=== PATIENT | female | born 1985 | race American Indian/Alaskan Native ===

== ENCOUNTER 2019-09-19 01:40 | Emergency (ER) | payer SELFPAY ==
[2019-09-19] MEDS ORDERED: ASPIRIN 325 MG TAB PO ONE (01:58)
[2019-09-19] MEDS ORDERED: IBUPROFEN 800 MG TAB PO ONE (02:10)
--- NOTE | 2019-09-19 02:15 | Emergency Department Report ---
ED Chest Pain HPI - General Chief Complaint: Chest Pain Stated Complaint: CHEST PAIN SOB Time Seen by Provider: 09/19/19 02:09 Source: patient Mode of arrival: Ambulatory Limitations: No Limitations - History of Present Illness Initial Comments: Ms. Bacon is a 34 yo female with hx of anixet and heart murmur who presents with chest pain for one year but worse for the past week. She is worried about heart attack or breast cancer. Chest pain in left chest worse when she is stressed out. She is worried about her relationship with her live in significant other. She is worried about her child at school. Denies SI or HI. Pain normally in left chest now radiated to mid chest with pressure sensation. [place] hot and flushed. Pain occurred at rest. No association with exertion. +shortness of breath. NO family hx of heart disease or breast cancer. She has had breast tendernes for several days. She has performed self breast exam. She nor her partner has detected at lump. MD Complaint: chest pain -: Gradual, week(s) (Several weeks), year(s) (1) Onset: during rest Pain Location: substernal, left chest Severity: mild Quality: tightness, sharp Consistency: intermittent Worsens With: palpation, movement re: dyspnea - Related Data Allergies Allergy/AdvReac Type Severity Reaction Status Date / Time No Known Allergies Allergy Verified 09/19/19 01:58 Heart Score - HEART Score History: Slightly suspicious EKG: Normal Age: < 45 Risk factors: No known risk factors Troponin: < normal limit HEART Score: 0 ED Review of Systems ROS: Stated complaint: CHEST PAIN SOB Other details as noted in HPI Comment: All other systems reviewed and negative Constitutional: denies: fever, malaise Respiratory: shortness of breath. denies: cough Cardiovascular: chest pain, palpitations Psychiatric: anxiety ED Past Medical Hx - Past Medical History Previous Medical History?: Yes Additional medical history: mumur - Surgical History Past Surgical History?: Yes Additional Surgical History: brochal cleft cyst - Family History Family history: hypertension - Social History Smoking Status: Never Smoker Substance Use Type: Alcohol ED Physical Exam - General Limitations: No Limitations General appearance: alert, in no apparent distress, anxious - Head Head exam: Present: atraumatic, normocephalic - Eye Eye exam: Present: normal appearance - ENT ENT exam: Present: mucous membranes moist - Neck Neck exam: Present: normal inspection, full ROM - Respiratory Respiratory exam: Present: normal lung sounds bilaterally. Absent: respiratory distress, wheezes, rales, rhonchi - Cardiovascular Cardiovascular Exam: Present: regular rate, normal rhythm, normal heart sounds. Absent: systolic murmur, diastolic murmur, rubs, gallop - GI/Abdominal GI/Abdominal exam: Present: soft, normal bowel sounds - Extremities Exam Extremities exam: Present: normal inspection - Neurological Exam Neurological exam: Present: alert, oriented X3 - Psychiatric Psychiatric exam: Present: normal affect, normal mood - Skin Skin exam: Present: warm, dry, intact, normal color. Absent: rash ED Medical Decision Making - EKG Data 09/19/19 02:15 EKG obtained 0145 Rate 65 bpm normal axis normal intervals no ST-T signs of ischemia normal EKG - Radiology Data Radiology results: report reviewed Chest radiograph no acute findings - Medical Decision Making Ms. Bacon is a healthy 34-year-old female presents with chest pain atypical for ACS. PERC negative. My clinical impression is chest wall pain. Also suspect a component of anxiety depression. She is stressed at home. 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 She denies domestic violence. I strongly suggested cognitive behavioral therapy. Also recommended creating support in order to assist with childcare. She denies suicidal homicidal ideation. I strongly recommended full physical exam by outside physician. Critical care attestation.: If time is entered above; I have spent that time in minutes in the direct care of this critically ill patient, excluding procedure time. ED Disposition Clinical Impression: Chest wall pain Disposition: DC-01 TO HOME OR SELFCARE Is pt being admited?: No Does the pt Need Aspirin: No Condition: Stable Instructions: Chest Pain (ED) Referrals: CRISTIN MOREIRA MD [Staff Physician] - 3-5 Days
[2019-09-19] MEDS ORDERED: ALPRAZolam 0.25 MG TAB PO ONE (02:21)
[2019-09-19] MEDS ORDERED: ACETAMINOPHEN 500 MG TAB PO ONE (02:21)
--- NOTE | 2019-09-19 02:36 | XRay Report ---
CHEST 1 VIEW 09/19/2019 2:01 AM INDICATION / CLINICAL INFORMATION: Chest Pain. COMPARISON: None available. FINDINGS: SUPPORT DEVICES: None. HEART / MEDIASTINUM: No significant abnormality. LUNGS / PLEURA: No significant pulmonary or pleural abnormality. No pneumothorax. ADDITIONAL FINDINGS: No significant additional findings. IMPRESSION: 1. No acute abnormality of the chest. Signer Name: Tim Miller MD Signed: 09/19/2019 2:31 AM Workstation Name: [id number]
[2019-09-19] MEDS ORDERED: predniSONE 20 MG TAB PO ONE (03:00)
[2019-09-19] MEDS ORDERED: predniSONE 20 MG TAB ONE (05:18)
[2019-09-19] MEDS ORDERED: IBUPROFEN 800 MG TAB ONE (05:18)
== END 2019-09-19 05:22 | disposition home or self-care (01) ==
LOC: ED 01:40
DX: R07.89 Other chest pain (principal); R06.02 Shortness of breath
CPT/HCPCS: 71045; 93005; 93010; 99284; J7512